=== PATIENT | female | born 1990 | race Caucasian/White ===

== ENCOUNTER 2018-01-25 10:27 | Emergency (ER) | payer SELFPAY ==
[~2018-01-25] VITALS: Ht 176.5 cm; Wt 120.0 kg
[2018-01-25 10:29] VITALS: BP 167/77; PULSE 106; RESP 16; TEMP 98.1; O2SAT 97
[2018-01-25] MEDS ORDERED: RISP3 PO (10:35)
[2018-01-25] MEDS ORDERED: AMOX500C PO (11:07)
--- NOTE | 2018-01-25 11:08 | PD ---
HPI Chief Complaint: ENT Complaint Time Seen by Provider: 10:56 Travel History International Travel<30 days: No Contact w/Intl Traveler<30days: No Traveled to known affect area: No History of Present Illness HPI 27-year-old female here with right ear pain 2 weeks. No fever chills. Symptom severity is moderate. She reports aching, throbbing pain which is constant. No drainage from the ear. No neck pain. No aggravating or alleviating factors. PFSH Past Medical History Hx Anticoagulant Therapy: No Cardiovascular Problems: Yes (CHOL) Diabetes: No Schizophrenia: Yes ?: Not Social History Alcohol Use: Yes (36OZ EVERY OTHER DAY) Tobacco Use: No Substance Use: No Allergies-Medications (Allergen,Severity, Reaction): Coded Allergies: No Known Allergies (Unverified , 01/25/18) Reported Meds & Prescriptions Reported Meds & Active Scripts Active Reported Risperdal (Risperidone) 3 Mg Tab 3 Mg PO HS Review of Systems Except as stated in HPI: all other systems reviewed are Neg General / Constitutional: No: Fever Eyes: No: Visual changes HENT: No: Headaches Cardiovascular: No: Chest Pain or Discomfort Respiratory: No: Shortness of Breath Gastrointestinal: No: Abdominal Pain Genitourinary: No: Dysuria Physical Exam Narrative GENERAL: Alert and well-appearing 27-year-old female SKIN: Warm and dry. HEAD: Normocephalic. EYES: No injection or drainage. ENT: Right TM erythema, bulging, loss of landmarks. No canal swelling or drainage. No mastoid tenderness. NECK: Supple, trachea midline. No lymphadenopathy. CARDIOVASCULAR: Regular rate and rhythm RESPIRATORY: Breath sounds equal bilaterally. No accessory muscle use. Data Data Last Documented VS Vital Signs Date Time Temp Pulse Resp B/P (MAP) Pulse Ox O2 Delivery O2 Flow Rate FiO2 01/25/18 10:29 98.1 106 16 167/77 (107) 97 MDM Medical Decision Making Medical Screen Exam Complete: Yes Emergency Medical Condition: Yes Differential Diagnosis Otitis media, otitis externa, mastoiditis Narrative Course 27-year-old female here with right sided otitis media. She is nontoxic appearing. She will be treated with amoxicillin. Diagnosis Primary Impression: Otitis media Qualified Codes: H66.90 - Otitis media, unspecified, unspecified ear Referrals: Primary Care Physician Additional Instructions: Antibiotics as directed. Follow-up with her primary doctor. Return if you have new or worsening symptoms. Scripts Amoxicillin (Amoxicillin) 500 Mg Cap 500 MG PO TID for Infection for 10 Days, CAP 0 Refills Prov: Evelyne Santos 01/25/18 Disposition: 01 DISCHARGE HOME Condition: Stable Evelyne Santos Jan 25, 2018 11:07
== END 2018-01-25 11:41 | disposition home or self-care (01) ==
LOC: PHEFT 10:27
DX: H66.91 Otitis media, unspecified, right ear (principal); F20.9 Schizophrenia, unspecified
CPT/HCPCS: 99283

== ENCOUNTER 2018-01-27 15:06 | Emergency (ER) | payer SELFPAY ==
[~2018-01-27] VITALS: Ht 175.3 cm; Wt 120.6 kg
[~2018-01-27 15:06] MED LIST: AMOX500C PO; RISP3 PO
[2018-01-27 15:08] VITALS: BP 115/78; PULSE 127; RESP 18; TEMP 98.5; O2SAT 94
[2018-01-27 15:37] VITALS: PULSE 117; TEMP 98.5
[2018-01-27] MEDS ORDERED: CIPR0.3S RIGHT EAR (15:49)
[2018-01-27] MEDS ORDERED: AUGM875T3 PO (15:49)
--- NOTE | 2018-01-27 15:55 | PD ---
HPI . Ear pain Chief Complaint: ENT Complaint Time Seen by Provider: 15:46 Travel History International Travel<30 days: No Contact w/Intl Traveler<30days: No Traveled to known affect area: No History of Present Illness HPI Patient presents with a chief complaint of right ear pain. 2 days ago for same and diagnosed with otitis media and discharged with a prescription for amoxicillin. She states that she has taken the amoxicillin as prescribed but that her pain is getting worse rather than better. Pain is now rated 9/10 with no modifying factors. PFSH Past Medical History Hx Anticoagulant Therapy: No Cardiovascular Problems: Yes (CHOL) Diabetes: No Diminished Hearing: No Schizophrenia: Yes Tetanus Vaccination: Unknown Influenza Vaccination: No ?: Not LMP: 3 WEEKS AGO Social History Alcohol Use: Yes (36OZ EVERY OTHER DAY) Tobacco Use: No Substance Use: No Allergies-Medications (Allergen,Severity, Reaction): Coded Allergies: No Known Allergies (Unverified , 01/27/18) Reported Meds & Prescriptions Reported Meds & Active Scripts Active Ciprodex Otic Drops (Ciprofloxacin-Dexamethasone Otic Drops) 0.3-0.1% Susp 4 Drop RIGHT EAR BID Augmentin (Amoxicillin-Clavulanate) 875-125 Mg Tab 1 Tab PO BID 7 Days Reported Risperdal (Risperidone) 3 Mg Tab 3 Mg PO HS Review of Systems Except as stated in HPI: all other systems reviewed are Neg Physical Exam Narrative GENERAL: Awake and alert and in no acute distress. SKIN: Warm and dry. Normal color and turgor. HEAD: Normocephalic/atraumatic. EYES: Pupils are equal. Extraocular movements are intact. ENT: I am not able to visualize her right TM. However, her right EAC is erythematous. She has pain with movement of the right ear and tenderness to palpation of the tragus. No TMJ tenderness. NECK: Normal range of motion. Supple. No cervical lymphadenopathy. CARDIOVASCULAR: Regular rate and rhythm. RESPIRATORY: Nonlabored respirations. Normal sats. MUSCULOSKELETAL: Atraumatic. Normal muscle tone. NEUROLOGICAL: A and O 3. Nonfocal. PSYCHIATRIC: Appropriate mood and affect. Data Data Last Documented VS Vital Signs Date Time Temp Pulse Resp B/P (MAP) Pulse Ox O2 Delivery O2 Flow Rate FiO2 01/27/18 15:37 98.5 117 01/27/18 15:08 18 115/78 (90) 94 Orders Orders Ed Discharge Order (01/27/18 15:50) MDM Medical Decision Making Medical Screen Exam Complete: Yes Emergency Medical Condition: Yes Differential Diagnosis Differential diagnosis of ear pain includes eustachian tube dysfunction, otitis externa, otitis media, TMJ syndrome Narrative Course This patient presents with chief complaint of right ear pain. She has been on antibiotics for otitis media for 2 days but is getting worse rather than better. On exam, she has otitis externa. I am unable to see her TM. Since I am unable to see her TM, I will presume that she also has otitis media since she had otitis media on exam 2 days ago. I will change her antibiotic from amoxicillin to Augmentin. I will also prescribe Ciprodex. Diagnosis Primary Impression: Otitis media Qualified Codes: H66.001 - Acute suppurative otitis media without spontaneous rupture of ear drum, right ear Additional Impression: Otitis externa Qualified Codes: H60.501 - Unspecified acute noninfective otitis externa, right ear Patient Instructions: General Instructions Departure Forms: Tests/Procedures Additional Instructions: Stop the amoxicillin. Scripts Ciprofloxacin-Dexamethasone Otic Drops (Ciprodex Otic Drops) 0.3-0.1% Susp 4 DROP RIGHT EAR BID for Infection, #1 BOTTLE 0 Refills Prov: Laura Gambino MD 01/27/18 Amoxicillin-Clavulanate (Augmentin) 875-125 Mg Tab 1 TAB PO BID for Infection for 7 Days, #14 TAB 0 Refills Prov: Laura Gambino MD 01/27/18 Disposition: 01 DISCHARGE HOME Condition: Stable Laura Gambino MD Jan 27, 2018 15:55
[2018-01-27] MEDS ORDERED: NEOMYCIN RIGHT EAR (16:28)
[2018-01-27] MEDS ORDERED: HYDROCORTISONE RIGHT EAR (16:28)
[2018-01-27] MEDS ORDERED: POLYMYXIN B RIGHT EAR (16:28)
== END 2018-01-27 16:31 | disposition home or self-care (01) ==
LOC: PHEFT 15:06
DX: H66.001 Acute suppurative otitis media without spontaneous rupture of ear drum, right ear (principal); H60.501 Unspecified acute noninfective otitis externa, right ear; F20.9 Schizophrenia, unspecified
CPT/HCPCS: 99283